=== PATIENT | female | born 1995 | race Caucasian/White ===

== ENCOUNTER 2018-01-08 01:02 | Emergency (ER) | payer BC | END 2018-01-08 02:53 | disposition home or self-care (01) | LOC: ED 01:02 | CPT/HCPCS: 73630 ==

== ENCOUNTER 2020-04-25 10:27 | Inpatient (IN) | payer OTHER ==
[2020-04-25] MEDS ORDERED: Cervidil 10 MG VAG SCH ×3 (16:00→17:00)
[2020-04-25] MEDS ORDERED: BRETHINE 1 MG/ML SQ PRN (16:00)
[2020-04-25] MEDS ORDERED: XYLOCAINE 1% HCL 20 ML MDV IJ PRN (16:00)
[2020-04-25] MEDS ORDERED: Lactated Ringers 1,000 ML IV SCH (16:00)
[2020-04-25] MEDS ORDERED: Zofran 4 MG/2 ML VIAL IV PRN (16:00)
[2020-04-25] MEDS ORDERED: TYLENOL EXTRA STRENGTH 500 MG PO PRN (16:00)
[2020-04-25] MEDS ORDERED: PITOCIN 30 UNITS/ LR 500 ML 500 ML IV SCH (16:00)
[2020-04-25] MEDS ORDERED: PITOCIN 30 UNITS/ LR 500 ML 30 UNITS/500 ML IV.SOLN. IV SCH ×2 (16:00)
[2020-04-25 18:24] LABS: Hematocrit 41.6 % (35-47); Mean Cell Volume 93.1 fl (78-100); Mean Corpuscular Hemoglobin 29.1 pg (26-32); Mean Corpuscular Hgb Concent. 31.3 g/dl (32-36); Mean Platelet Volume 11.3 fl (7.5-11.0); Platelet Count 218 K/mm3 (150-450); Red Blood Count 4.47 M/mm3 (4.1-5.4); Red Cell Distribution Width 14.9 % (11.5-14.0); White Blood Count 17.3 K/mm3 (4.0-10.5)
[2020-04-25 18:50] LABS: Amphetamine,Urine NEGATIVE (NEGATIVE); Barbiturate,Urine NEGATIVE (NEGATIVE); Benzodiazepine,Urine NEGATIVE (NEGATIVE); Cocaine,Urine NEGATIVE (NEGATIVE); Methadone,Urine NEGATIVE (NEGATIVE); Opiate,Urine NEGATIVE (NEGATIVE); PCP,Urine NEGATIVE (NEGATIVE); THC,Urine NEGATIVE (NEGATIVE)
[2020-04-25] MEDS: CLINDAMYCIN-D5W 900 MG/50 ML*** 900 MG/50 ML BAG IV SCH ×2 (22:34→22:35)
[2020-04-25 22:50] LABS: Lymphocytes 26 % (24-44); Monocyte 5 % (0.0-12.0); Neutrophils 69 % (36.0-66.0); Platelet Estimate NORMAL (NORMAL); Total Cells Counted 100
[2020-04-26] MEDS: CLINDAMYCIN-D5W 900 MG/50 ML*** 900 MG/50 ML BAG IV SCH ×3 (05:58→23:13)
[2020-04-26] MEDS: Lactated Ringers 1,000 ML IV SCH ×2 (05:59→17:39)
[2020-04-26] MEDS ORDERED: PITOCIN 30 UNITS/ LR 500 ML 500 ML IV SCH (06:00)
[2020-04-26] MEDS ORDERED: PITOCIN 30 UNITS/ LR 500 ML 30 UNITS/500 ML IV.SOLN. IV SCH (06:02)
[2020-04-26] MEDS ORDERED: Lactated Ringers 1,000 ML IV ONE (07:50)
[2020-04-26] MEDS ORDERED: OB EPIDURAL NAROPIN/SUFENTANIL IN NACL EPIDURAL PRN (07:50)
[2020-04-26] MEDS ORDERED: Ephedrine Sulfate 50 MG/ML IV PRN (07:50)
[2020-04-26] MEDS ORDERED: SUBLIMAZE 100 MCG/2 ML ONE (12:30)
[2020-04-26] MEDS ORDERED: Marcaine 0.5%/Epinephrine 10 ML ONE (13:20)
[2020-04-26] MEDS ORDERED: XYLOCAINE 2%/Epi 1:200000 20ML VIAL MPF ONE (13:20)
[2020-04-26] MEDS ORDERED: Dermoplast Spray TP PRN (22:01)
[2020-04-26] MEDS ORDERED: Dulcolax 10 MG SUPP PR PRN (22:01)
[2020-04-26] MEDS ORDERED: NORCO 5/325 MG PO PRN (22:01)
[2020-04-26] MEDS ORDERED: CORTISONE 1% CREAM TP PRN (22:01)
[2020-04-26] MEDS ORDERED: Mylicon 80MG PO PRN (22:01)
[2020-04-26] MEDS ORDERED: LANSINOH 40 GM TOP PRN (22:01)
[2020-04-26] MEDS: TUCKS TP PRN (22:59)
[2020-04-27 04:10] LABS: Hematocrit 33.7 % (35-47); Mean Cell Volume 90.1 fl (78-100); Mean Corpuscular Hemoglobin 29.4 pg (26-32); Mean Corpuscular Hgb Concent. 32.6 g/dl (32-36); Mean Platelet Volume 11.2 fl (7.5-11.0); Platelet Count 211 K/mm3 (150-450); Red Blood Count 3.74 M/mm3 (4.1-5.4); Red Cell Distribution Width 14.6 % (11.5-14.0); White Blood Count 23.9 K/mm3 (4.0-10.5)
[2020-04-27 07:28] LABS: BAND 20 % (0.0-2.0); Lymphocytes 7 % (24-44); Metamyelocyte 1 %; Monocyte 5 % (0.0-12.0); Neutrophils 67 % (36.0-66.0); Total Cells Counted 100
[2020-04-27 07:29] LABS: ANISOCYTOSIS 1+; Platelet Estimate NORMAL (NORMAL); Polychromasia RARE
[2020-04-27 07:30] LABS: Absolute Neutrophil Ct (ANC) 20.8 (1.4-6.9)
[2020-04-27] MEDS: Colace 100 MG PO SCH ×2 (09:39→21:12)
[2020-04-27] MEDS: FERREX 150 PO SCH (09:39)
[2020-04-27] MEDS: MOTRIN 400 MG PO PRN (21:10)
[2020-04-28 04:18] VITALS: O2SAT 99
[2020-04-28 06:50] LABS: Hematocrit 32.7 % (35-47); Mean Cell Volume 92.9 fl (78-100); Mean Corpuscular Hemoglobin 28.4 pg (26-32); Mean Corpuscular Hgb Concent. 30.6 g/dl (32-36); Mean Platelet Volume 11.3 fl (7.5-11.0); Platelet Count 184 K/mm3 (150-450); Red Blood Count 3.52 M/mm3 (4.1-5.4); Red Cell Distribution Width 14.9 % (11.5-14.0); White Blood Count 16.7 K/mm3 (4.0-10.5)
[2020-04-28] MEDS: FERREX 150 PO SCH (09:35)
[2020-04-28] MEDS: Colace 100 MG PO SCH (09:35)
[2020-04-28 09:41] LABS: Lymphocytes 38 % (24-44); Monocyte 4 % (0.0-12.0); Neutrophils 58 % (36.0-66.0); Platelet Estimate NORMAL (NORMAL); Total Cells Counted 100
--- NOTE | 2020-04-28 11:21 | PCM.DS ---
Discharge Summary Date of Admission: 04/26/20 10:27 Admitting Physician: JHONY MARCELO Primary Care Provider: JHONY MARCELO Allergies Allergies amoxicillin Allergy (Verified 04/25/20 17:35) azithromycin [From Zithromax] Allergy (Verified 04/25/20 17:35) Penicillins Allergy (Verified 04/25/20 17:35) Hospital Summary - Hospital Course Hospital Course: Pt came in as at 40w and 3d and delivered 7lb 8oz female over 2degree vaginal laceration (for full details, see Dr. Marcelo' delivery note). She is . Only complaining of a little cramping. Has not been taking pain meds. She is having light bleeding. Will be discharged to home today with baby. PP Hgb 10.0 (home on iron). F/u with Dr. Marcelo in 4-6 weeks. - Vitals & Intake/Output Vital Signs: Vital Signs Temperature 98 F 04/28/20 02:00 Pulse Rate 67 04/28/20 02:00 Respiratory Rate 20 04/28/20 02:00 Blood Pressure 131/86 04/28/20 02:00 O2 Sat by Pulse Oximetry 99 04/28/20 02:00 Intake & Output: Intake & Output 04/25/20 04/26/20 04/27/20 04/28/20 11:59 11:59 11:59 11:59 Intake Total 650 2230 500 Output Total 800 Balance 650 1430 500 Weight 105.687 kg - Lab Result Diagrams: 04/28/20 05:30 Lab Results-Last 24 Hrs: Lab Results-Last 24 Hours 04/28/20 Range/Units 05:30 WBC 16.7 H (4.0-10.5) K/mm3 RBC 3.52 L (4.1-5.4) M/mm3 Hgb 10.0 L (12.0-16.0) gm/dl Hct 32.7 L (35-47) % MCV 92.9 (78-100) fl MCH 28.4 (26-32) pg MCHC 30.6 L (32-36) g/dl RDW 14.9 H (11.5-14.0) % Plt Count 184 (150-450) K/mm3 MPV 11.3 H (7.5-11.0) fl Segmented Neutrophils 58 (36.0-66.0) % Lymphocytes (Manual) 38 (24-44) % Monocytes (Manual) 4 (0.0-12.0) % Platelet Estimate NORMAL (NORMAL) Discharge Exam General Appearance: no apparent distress, alert, obese Neurologic Exam: oriented x 3, cooperative Eye Exam: eyes nml inspection Ears, Nose, Throat Exam: moist mucous membranes Neck Exam: normal inspection Respiratory Exam: normal breath sounds, lungs clear, No crackles/rales, No rhonchi, No wheezing Cardiovascular Exam: regular rate/rhythm, normal heart sounds, No murmur Gastrointestinal/Abdomen Exam: soft, normal bowel sounds, other (fundus firm approx 2cm superior to umbilicus.), No tenderness Back Exam: normal inspection, No rash Extremity Exam: normal inspection, No pedal edema, No swelling Skin Exam: normal color, warm, dry, No rash Final Diagnosis/Problem List - Final Discharge Diagnosis/Problem (1) Spontaneous vaginal delivery Current Visit: Yes Status: Acute Assessment & Plan: Doing great. Home today. F/u with Dr. Marcelo in 4-6 wks. INSPECT done and appropriate today 04/28/20. Code(s): O80 - ENCOUNTER FOR FULL-TERM UNCOMPLICATED DELIVERY (2) Anemia Current Visit: Yes Status: Acute Code(s): D64.9 - ANEMIA, UNSPECIFIED - Discharge Disposition: Home, Self-Care Condition: Good Prescriptions: New Ferrous Sulfate 325 mg PO DAILY #30 tablet Ibuprofen 600 mg PO TID PRN #35 tablet PRN Reason: Pain Hydrocodone/APAP 5-325 Tab^^^ [[place]gett 5-325 Tablet^^^] 1 each PO BID PRN #5 tablet MDD 6 PRN Reason: Severe Pain Continue Vits W-Ca,Fe,FA(<1Mg) [] 1 tab PO DAILY Follow up with: JHONY MARCELO MD [Primary Care Provider] - 1 Week
[2020-04-28] MEDS: MOTRIN 400 MG PO PRN (19:48)
[2020-04-28] MEDS: TUCKS TP PRN (19:49)
[2020-04-28 19:59] VITALS: BP 128/59; PULSE 73
== END 2020-04-28 20:30 | disposition home or self-care (01) | DRG 807 ==
LOC: OB 10:27 → OBSVTOIN 04-26 10:27
PROVIDERS: ADMIT Family Medicine; ATTEND Family Medicine
PROC: 10D07Z8 Extraction of Products of Conception, Other, Via Natural or Artificial Opening (ICD-10-PCS; principal; 2020-04-26)
PROC: 0KQM0ZZ Repair Perineum Muscle, Open Approach (ICD-10-PCS; 2020-04-26)
DX: O70.1 Second degree perineal laceration during delivery (principal); Z37.0 Single live birth; O69.1XX0 Labor and delivery complicated by cord around neck, with compression, not applicable or unspecified; Z3A.40 40 weeks gestation of pregnancy; D64.9 Anemia, unspecified
CPT/HCPCS: 36415; 80307; 81003; 85025; 87340; 94799; G0378; J2590; J2795; J3010; A9270-GY